=== PATIENT | female | born 1970 | race Caucasian/White ===

== ENCOUNTER 2019-12-08 11:17 | Emergency (ER) | payer OTHER ==
[~2019-12-08] VITALS: Ht 172.7 cm; Wt 100.0 kg
--- NOTE | 2019-12-08 11:42 | NUR ---
Pt BIB [facility] due to right upper extremity pain after falling against door corner. Vicenta MARLOW at bedside performed assessment and discussed plan of care. NAD, pt changed into gown and placed on gurney, call light within reach, boyfriend at bedside, RE.
[2019-12-08] MEDS ORDERED: ONDANSETRON 2MG/ML, 2ML IVPush ONE (12:00)
[2019-12-08] MEDS ORDERED: HYDROmorphone 1 MG/ML, 1ML INJ IVPush PRN (12:00)
[2019-12-08] MEDS ORDERED: SODIUM CHLORIDE FLUSH 10ML SYR IVF ONE (12:00)
[2019-12-08] MEDS ORDERED: PLEASE ENTER ALLERGIES MC SCH (12:00)
[2019-12-08] MEDS ORDERED: ONDANSETRON 2MG/ML, 2ML ONE (12:07)
[2019-12-08] MEDS ORDERED: HYDROmorphone 1 MG/ML, 1ML INJ ONE (12:07)
--- NOTE | 2019-12-08 12:09 | NUR ---
pt to radiology via gurney, NAD, even and unlabored respirations.
[2019-12-08 13:39] VITALS: BP 119/74
== END 2019-12-08 13:41 | disposition home or self-care (01) ==
LOC: ED 13:35
DX: S50.11XA Contusion of right forearm, initial encounter (principal); S80.02XA Contusion of left knee, initial encounter; S40.011A Contusion of right shoulder, initial encounter; F17.210 Nicotine dependence, cigarettes, uncomplicated; W01.0XXA Fall on same level from slipping, tripping and stumbling without subsequent striking against object, initial encounter; Y93.02 Activity, running; Y92.009 Unspecified place in unspecified non-institutional (private) residence as the place of occurrence of the external cause; Y99.8 Other external cause status
CPT/HCPCS: 73030; 73090; 73564; 96374; 96375; 99284; J1170; J2405